=== PATIENT | female | born 1985 | race Caucasian/White ===

== ENCOUNTER → 2017-03-07 | Outpatient (CLI) | payer BC, OTHER ==
--- NOTE | 2017-03-09 20:26 | MR ---
MR brain and cervical spine without contrast HISTORY: Headaches and neck pain Multiplanar multisequence imaging obtained through the brain and cervical spine No comparisons Brain MRI: Dental work causes some artifact over the exam. No evident restricted diffusion. Brain sig nal is maintained, reddy-white differentiation is normal. There is no hemorrhage or hydrocephalus. The re are normal vascular flow voids. Corpus callosum, pituitary, cervical medullary junction, cerebello pontine angles are normal. IMPRESSION: Normal brain MRI within the limitations of the exam Cervical spine MRI: Thoracic scoliosis is suspected. Cervical cord signal is normal. There is some ar tifact at the upper cervical region however to the patient's dental work. Cervical vertebral bodies s how preserved height and alignment, spondylosis is present at C5-6 and C6-7 with loss of disc height and signal. Cervical medullary junction is normal. C2-3: somewhat limited, no gross abnormality C3-4: Posterior broad-based disc bulge causes minimal anterior mass effect on the thecal sac. Uncover tebral joint hypertrophy results in some bilateral foraminal encroachment. No significant central pino nosis. C4-5: Unremarkable C5-6: Left posterior paracentral extension of endplate disc complex results in anterolateral mass eff ect on the thecal sac. Left-sided foraminal encroachment is present greater than right. When mild gentry tral stenosis. C6-7: Left posterior paracentral extension of endplate disc complex causes anterolateral mass effect on the thecal sac and possibly contacting the anterior cervical cord. Foraminal encroachment is mild on the left greater than right. Only mild central stenosis. C7-T1: Unremarkable Hemangioma is present posterior aspect of the T2 vertebral body, increased signal present at T1 and T 2-weighted sequences. IMPRESSION: Thoracic scoliosis. Degenerative disc disease C5-6 and C6-7 as described.
== END | disposition home or self-care (01) ==
LOC: RADMRIMAIN 15:14
PROVIDERS: ATTEND Psychiatry & Neurology Pain Medicine
DX: M50.322 Other cervical disc degeneration at C5-C6 level (principal); R51 Headache
CPT/HCPCS: 70551; 72141

== ENCOUNTER → 2019-05-25 | Outpatient (CLI) | payer BC ==
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
== END | disposition home or self-care (01) ==
LOC: RADMRIMAIN 19:44
PROVIDERS: ATTEND Orthopaedic Surgery Sports Medicine
DX: R60.0 Localized edema (principal); M25.871 Other specified joint disorders, right ankle and foot; M79.671 Pain in right foot

== ENCOUNTER → 2019-08-19 | Outpatient (CLI) | payer BC ==
[2019-08-19 11:33] LABS: Basophils # (A) 0.1 k/uL (0-0.2); Basophils % (A) 1 %; Eosinophils # (A) 0.3 k/uL (0-0.7); Eosinophils % (A) 3 %; HGB 14.1 gm/dL (11.4-16.0); Lymphocytes # (A) 2.1 k/uL (1.0-4.8); Lymphocytes % (A) 26 %; MCH 30.1 pg (25.0-35.0); MCHC 33.5 g/dL (31.0-37.0); MCV 89.9 fL (80.0-100.0); Mean Platelet Volume 7.3; Monocytes # (A) 0.4 k/uL (0-1.0); Monocytes % (A) 5 %; Neutrophils % (A) 62 %; Platelet Count 268 k/uL (150-450); RBC 4.68 m/uL (3.80-5.40); RDW 12.8 % (11.5-15.5); WBC 8.1 k/uL (3.8-10.6)
[2019-08-19 13:55] LABS: Erythrocyte Sedimentation Rate 2 mm/hr (0-20)
[2019-08-19 17:33] LABS: Cyclic Citrull Pep IgG Unit 3.1 U/mL; Cyclic Citrullinated Pep IgG POSITIVE (NEGATIVE); DNA Double-Stranded NEGATIVE (NEGATIVE)
[2019-08-19 18:03] LABS: ALT 21 U/L (8-44); AST 24 U/L (13-35); African American GFR (CKD) 112.3 (60.0-200.0); Alkaline Phosphatase 87 U/L (41-126); Calcium 9.1 mg/dL (8.7-10.3); Chloride 107 mmol/L (96-109); Creatine Kinase 124 U/L (26-186); Glucose 78 mg/dL (70-110); Potassium 4.2 mmol/L (3.5-5.5); Rheumatoid Factor, Qnt <4 IU/mL (0-15); Sodium 142 mmol/L (135-145); Total Bilirubin 0.4 mg/dL (0.3-1.2); Total Protein 6.4 g/dL (6.2-8.2); Uric Acid 4.6 mg/dL (2.9-7.7)
== END | disposition home or self-care (01) ==
LOC: LABWHC1 10:26
DX: M25.512 Pain in left shoulder (principal); R21 Rash and other nonspecific skin eruption; T78.3XXA Angioneurotic edema, initial encounter
CPT/HCPCS: 36415; 80053; 82550; 84443; 84550; 85025; 85652; 86038; 86200; 86225; 86431

== ENCOUNTER → 2020-05-10 | Outpatient (CLI) | payer BC, MEDICARE | END | disposition home or self-care (01) | LOC: LABWHC1 11:18 | PROVIDERS: ATTEND Family Medicine | DX: Z11.59 Encounter for screening for other viral diseases (principal) ==

== ENCOUNTER → 2021-02-14 | Outpatient (CLI) | payer OTHER ==
--- NOTE | 2021-02-14 17:16 | XR ---
Result: History: Rib pain. Comparison: None available. Technique: 3+ views of the left ribs. Findings: There is no definite displaced rib fracture. The visualized osseous structures are in anatomic align ment. The visualized lung demonstrates no acute abnormality. Impression: No definite displaced fracture or acute process.
== END | disposition home or self-care (01) ==
LOC: RADXRMAIN 16:18
PROVIDERS: ATTEND Family Medicine
DX: R07.81 Pleurodynia (principal)

== ENCOUNTER → 2021-07-06 | Outpatient (CLI) | payer OTHER ==
--- NOTE | 2021-07-06 12:58 | MR ---
EXAMINATION TYPE: MR shoulder LT wo con DATE OF EXAM: 07/06/2021 COMPARISON: None HISTORY: Lt shoulder pain into clavicle/scapula, Hx of past injury TECHNIQUE: Multiplanar, multisequence imaging of the left shoulder is performed without contrast. FINDINGS: There appears to be an arrow marrow edema involving the posterior humeral head with slight flattening which can be associated with a Hill-Sachs deformity. Correlate for history of previous shoulder disl ocation. There is a small amount of fluid in the subacromial bursa. There is no through thickness rotator cuff tear. Findings suggestive tendinosis. Subtle increased signal in the anterior fibers of the supraspi natus are more typical tendinosis although intrasubstance partial tear not entirely excluded. Bony labrum are grossly intact. Noncontrast technique. Inferior glenohumeral ligament intact. No siza ble joint effusion. Bicipital tendon is well situated in the bicipital groove. AC joint maintained. IMPRESSION: 1. Rotator cuff tendinosis with subtle increased signal involving the anterior fibers of the distal s upraspinatus tendon. Partial intrasubstance tear not excluded. No through thickness tear or retractio n. 2. There is flattening of the posterior superior humeral head near the greater tuberosity. Small area of localized marrow edema or contusion correlate for history of shoulder dislocation or trauma. Hill -Sachs deformity in the differential diagnosis.
== END | disposition home or self-care (01) ==
LOC: RADMRIMAIN 08:14
PROVIDERS: ATTEND Family Medicine
DX: M23.222 Derangement of posterior horn of medial meniscus due to old tear or injury, left knee (principal); M21.922 Unspecified acquired deformity of left upper arm; R60.9 Edema, unspecified

== ENCOUNTER → 2022-01-09 | Outpatient (CLI) | payer OTHER ==
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
== END | disposition home or self-care (01) ==
LOC: RADMRIMAIN 01-01 16:20
PROVIDERS: ATTEND Family Medicine
DX: M41.82 Other forms of scoliosis, cervical region (principal); M47.812 Spondylosis without myelopathy or radiculopathy, cervical region
CPT/HCPCS: 72141

== ENCOUNTER → 2022-11-03 | Outpatient (CLI) | payer MEDICARE, OTHER | END | disposition home or self-care (01) | LOC: RADMRIMAIN 15:08 | DX: Z53.9 Procedure and treatment not carried out, unspecified reason (principal) ==

== ENCOUNTER → 2023-02-12 | Outpatient (CLI) | payer MEDICARE | END | disposition home or self-care (01) | LOC: LABT 15:15 | PROVIDERS: ATTEND Allergy & Immunology | DX: R22.0 Localized swelling, mass and lump, head (principal) ==

== ENCOUNTER → 2024-10-02 | Outpatient (CLI) | payer MEDICARE ==
--- NOTE | 2024-10-08 09:10 | MR ---
EXAMINATION TYPE: MR shoulder LT wo con DATE OF EXAM: 10/02/2024 7:08 AM COMPARISON: 07/06/2021 CLINICAL INDICATION: Female, 38 years old with history of M25.512 left shoulder pain, LT Shoulder claudia n TECHNIQUE: Multiplanar, multisequence imaging of the left shoulder is performed without contrast. FINDINGS: Some limitation due to motion. The patient states that she has muscle spasms. The subscapularis tendon shows diffuse thickening and intermediate signal but without discrete tear. The long head biceps tendon shows intrinsic signal within the intracapsular portion and mild fluid al marlin the bicipital groove. Bursal sided fraying has developed along both supraspinatus and infraspinatus tendon with mild thicke sonia/effusion in the overlying subacromial/subdeltoid bursa. No partial thickness or full-thickness rotator cuff tear otherwise seen. No rotator cuff muscle atrop hy. The glenohumeral joint is intact with physiologic joint fluid. No discrete labral tear given on arthr ographic technique though there does appear to be some intrinsic signal within the superior labrum ju st posterior to the biceps anchor. Slight thickened appearance to the anterior inferior glenohumeral joint capsule is unchanged. No Hill-Sachs deformity or os acromiale. Patchy red marrow hyperplasia which can be seen in the setting of anemia, obesity, smoking, or chroni c disease. IMPRESSION: 1. Interval development of mild AC joint OA. 2. Underlying trace bursal effusion may be reactive to some associated subacromial impingement as the re is also bursal sided fraying throughout both supraspinatus and infraspinatus tendons. No discrete rotator cuff tendon tear. 3. Also, interval development of fairly moderate subscapularis tendinosis. 4. Correlate for a small SLAP tear. There may be a small contiguous tear which extends into the bicep s anchor and intracapsular portion of the long head biceps tendon. [facility], , 10/08/2024 9:07 AM
== END | disposition home or self-care (01) ==
LOC: RADMRIMAIN 06:30
PROVIDERS: ATTEND Orthopaedic Surgery
DX: M19.012 Primary osteoarthritis, left shoulder (principal); M67.814 Other specified disorders of tendon, left shoulder

== ENCOUNTER → 2025-02-12 | Outpatient (CLI) | payer MEDICARE ==
--- NOTE | 2025-02-12 17:51 | CT ---
EXAMINATION TYPE: CT shoulder LT wo con DATE OF EXAM: 02/12/2025 5:08 PM COMPARISON: . None CLINICAL INDICATION: Female, 39 years old with history of Z98.890 OTHER SPECIFIED POSTPROCEDURAL STAT ES; PHH, pain post surgery TECHNIQUE: Axial images were obtained of the CT shoulder LT wo con, Additional coronal and sagittal r eformatted images and soft tissue and bone window were obtained for review. 3-D reconstruction was cr eated on a separate workstation. Contrast used: mL of , (None if empty) Oral contrast used: (None if empty) CT DLP: 518.7 mGycm, Automated exposure control for dose reduction was used. FINDINGS: Postsurgical changes of the left scapula with fixation hardware present. There are 2 bone f ragments anchored anteriorly which are not fused to the glenoid. Minimal degeneration changes in left glenohumeral joint with osteophyte formation of the glenoid. No evidence for acute fracture. Visualized portions of the lung appear clear. No evidence for rib fracture. IMPRESSION: Post surgical changes of left scapula with 2 bony fragments which are incompletely fused the left gle noid. There appears intact. There is minimal degeneration changes of the left shoulder. No evidence o f acute fracture. [facility], , 02/12/2025 5:49 PM
== END | disposition home or self-care (01) ==
LOC: RADCTMAIN 16:38
DX: M19.012 Primary osteoarthritis, left shoulder (principal); Z98.890 Other specified postprocedural states